=== PATIENT | female | born 1960 | race Caucasian/White ===

== ENCOUNTER 2018-02-15 00:57 | Day surgery (SDC) | payer BC ==
[~2018-02-15] VITALS: Ht 162.6 cm; Wt 62.6 kg
[~2018-02-15 00:57] MED LIST: APIX5TAB PO; CEP500 PO; ENOX60DI8 SQ; ESCI20TA38 PO; ESTR1PAT72 TD; PER PO; WAR5 PO; [UNRECOGNIZED DRUG - CODE] PO
[2018-02-15] MEDS ORDERED: NORMOSOL R SOLN(*) 1000 ML BAG 1,000 ML IV PRN (07:00)
[2018-02-15] MEDS ORDERED: LIDOCAINE/SOD BICARB 8.4% SYR ID ONE (07:00)
[2018-02-15 07:03] VITALS: BP 112/84
[2018-02-15] MEDS ORDERED: LIDOCAINE MPF 1% 5 ML VIAL ONE (07:49)
[2018-02-15] MEDS ORDERED: PROPOFOL EMUL(*) 10MG/ML 20 ML 40 ML ONE (07:49)
[2018-02-15 08:36] VITALS: BP 99/63
[2018-02-15 09:00] VITALS: BP 106/70
[2018-02-15 09:06] VITALS: BP 101/69
[2018-02-15 09:07] VITALS: BP 108/67
== END 2018-02-15 09:30 | disposition home or self-care (01) ==
LOC: OR 00:57
PROVIDERS: ATTEND Family Medicine
DX: Z12.11 Encounter for screening for malignant neoplasm of colon (principal); K63.5 Polyp of colon; K57.30 Diverticulosis of large intestine without perforation or abscess without bleeding; D68.61 Antiphospholipid syndrome; F32.9 Major depressive disorder, single episode, unspecified
CPT/HCPCS: 00811; 45380; 88305; J2001; J2704

== ENCOUNTER → 2018-12-11 | Outpatient (CLI) | payer BC ==
--- NOTE | 2018-12-13 08:24 | RADIOLOGY IMAGING REPORT ---
FACILITY: [facility] - [place] PATIENT NAME: ANA ENCISO : [id number] MR: [id number] V: [id number] EXAM DATE: [id number] ORDERING PHYSICIAN: SEAN RUBIO TECHNOLOGIST: Brittany Loomis PROCEDURE:BILATERAL DIGITAL SCREENING MAMMOGRAM WITH CAD ASSISTED INTERPRETATION & 3D TOMOSYNTHESIS COMPARISON:None. INDICATIONS:baseline FINDINGS: The breasts are heterogeneously dense which can obscure small masses. There are scattered benign appearing calcifications noted bilaterally. DIAGNOSTIC CATEGORY 2--BENIGN FINDING. RECOMMENDATIONS: ROUTINE MAMMOGRAM AND CLINICAL EVALUATION. IMPRESSION: BIRADS 2: Benign finding. No significant abnormality identified at this time. Dictated by: Yolanda Gil M.D. on 12/11/2018 at 16:20 Transcribed by: EDUARDO on 12/12/2018 at 9:18 Approved by: Yolanda Gil M.D. on 12/13/2018 at 8:23 [facility]
== END ==
LOC: MAMO 01:22
PROVIDERS: ATTEND Physician Assistant
DX: Z12.31 Encounter for screening mammogram for malignant neoplasm of breast (principal)
CPT/HCPCS: 77063; 77067